=== PATIENT | female | born 1965 | race Caucasian/White ===

== ENCOUNTER → 2016-09-27 | Outpatient (CLI) | payer BC ==
--- NOTE | 2016-09-28 07:41 | MAMMOGRAPHY REPORT ---
BILATERAL DIGITAL SCREENING MAMMOGRAM TOMOSYNTHESIS WITH CAD: 09/27/2016 CLINICAL HISTORY: Routine screening. Patient has no complaints. TECHNIQUE: Breast tomosynthesis in addition to standard 2D mammography was performed. Current study was also evaluated with a Computer Aided Detection (CAD) system. COMPARISON: Comparison is made to exams dated: 09/23/2015 mammogram, 09/12/2014 mammogram, 09/10/2013 ma mmogram, 08/28/2012 mammogram, 08/27/2011 mammogram, and 08/25/2010 mammogram - [facility] nter. BREAST COMPOSITION: The tissue of both breasts is heterogeneously dense, which may obscure small mas ses. FINDINGS: There are a few scattered benign-appearing microcalcifications in the breasts. No suspicio us mass, architectural distortion or cluster of suspicious microcalcifications is seen. IMPRESSION: ACR BI-RADS CATEGORY 1: NEGATIVE There is no mammographic evidence of malignancy. A 1 year screening mammogram is recommended. The pa tient will receive written notification of the results. Approximately 10% of breast cancers are not detected with mammography. A negative mammographic report should not delay biopsy if a clinically suggestive mass is present. Ritu Hennessy M.D. ay/:09/27/2016 17:46:44 Baker Helper: Barbara DAVALOS)(Madie), [facility] letter sent: Normal 1/2 BI-RADS Code: ACR BI-RADS Category 1: Negative
== END | disposition home or self-care (01) ==
LOC: C.MAMM 11:04
PROVIDERS: ATTEND Physician Assistant
DX: Z12.31 Encounter for screening mammogram for malignant neoplasm of breast (principal)

== ENCOUNTER 2024-02-19 18:23 | Inpatient (IN) ==
--- NOTE | 2024-02-19 18:50 | CT Scan Report ---
EXAM: CT Head Without Intravenous Contrast INDICATION: Right facial droop and left hand numbness. TECHNIQUE: Axial computed tomography images of the head/brain without intravenous contrast. Sagittal and/or coronal reformats are provided. Sagittal and coronal reformatted images were created and reviewed. This CT exam was performed using one or more of the following dose reduction techniques: automated exposure control, adjustment of the mA and/or kV according to patient size, and/or use of iterative reconstruction technique. COMPARISON: No relevant prior studies available. FINDINGS: Limitations: None. Brain and extra-axial spaces: No abnormality noted. No hemorrhage. No significant white matter disease. No edema. No ventriculomegaly. Bones/joints: No acute changes. Soft tissues: No significant abnormality noted. Vasculature: No acute abnormality noted. Sinuses: No layering fluid in the visualized portions of the paranasal sinuses. Mastoid air cells: No mastoid effusion. Orbits: No significant abnormality noted. IMPRESSION: No abnormality noted. Results discussed per stroke protocol with Dr. Valencia at 6:50 PM 02/19/2024. ACT 112: Negative or not required by law. Electronically signed by Yu Santos 02-19-2024 6:50 PM
[2024-02-19] MEDS: ONDANSETRON INJ 2 MG/ML 2 ML VIAL IV STA (18:55)
[2024-02-19] MEDS: ONDANSETRON INJ 2 MG/ML 2 ML VIAL ONE (18:55)
[2024-02-19] MEDS: HYDROmorphone INJ 0.5 MG/0.5 ML SYR IV PRN (19:01)
[2024-02-19 19:03] LABS: iSTAT Creatinine 0.8 mg/dl (0.6-1.3); iSTAT Hemoglobin 13.9 g/dl (12.0-16.0); iSTAT Ionized Calcium 1.08 mmol/l (1.12-1.32); iSTAT Potassium 3.5 mmol/L (3.3-5.0)
[2024-02-19] MEDS: OPTIRAY 320 125ml IV ONE (19:08)
[2024-02-19 19:11] LABS: Hematocrit (blood only) 38.9 % (37.0-47.0); Hemoglobin 13.6 g/dl (12.0-16.0); Mean Corpuscular Hemoglobin 33.6 pg (25.0-34.0); Mean Platelet Volume 10.9 fL (9.4-12.4); Platelet Count 261 K/uL (130-400); RDW Coefficient of Variation 12.5 % (11.5-14.5); RDW Standard Deviation 44.3 fL (36.4-46.3); Red Blood Count 4.05 M/uL (4.20-5.40); White Blood Count 7.91 K/ul (4.8-10.8)
[2024-02-19 19:26] LABS: Albumin Level 4.9 gm/dl (3.4-5.0); BUN Creatinine Ratio 22.7 (10-20); Bilirubin,Total 0.6 mg/dl (0.2-1.0); Calcium 10.3 mg/dl (8.6-10.3); Creatinine Clr Calc Pharmacy 94.6 ml/min; Globulin 2.5 gm/dl (2.5-4.0); Magnesium 1.8 mg/dl (1.7-2.4); Potassium 3.5 mmol/L (3.5-5.1); Total Protein 7.4 gm/dl (6.0-8.3)
--- NOTE | 2024-02-19 19:29 | CT Scan Report ---
Exam(s): CTA HEAD With Contrast IV Amt: 116 ml optiray 320 EXAM: CT Angiography Head With Intravenous Contrast CLINICAL HISTORY: Reason for exam: L Hand, R face numbness, hx of vert dissection. TECHNIQUE: Axial computed tomographic angiography images of the head with intravenous contrast. CTDI is 12.37 mGy and DLP is 457.22 mGy-cm. Automated exposure control was utilized for the study. A dose lowering technique was utilized adhering to the principles of ALARA. MIP reconstructed images were created and reviewed. CONTRAST: Patient received 116 ml optiray 320 of IV contrast COMPARISON: No relevant prior studies available. FINDINGS: Right internal carotid artery: No acute findings. Intracranial segment is patent with no significant stenosis. No aneurysm. Right anterior cerebral artery: Unremarkable. No occlusion or significant stenosis. No aneurysm. Right middle cerebral artery: Unremarkable. No occlusion or significant stenosis. No aneurysm. Right posterior cerebral artery: Unremarkable. No occlusion or significant stenosis. No aneurysm. Right vertebral artery: Unremarkable as visualized. Left internal carotid artery: No acute findings. Intracranial segment is patent with no significant stenosis. No aneurysm. Left anterior cerebral artery: Unremarkable. No occlusion or significant stenosis. No aneurysm. Left middle cerebral artery: Unremarkable. No occlusion or significant stenosis. No aneurysm. Left posterior cerebral artery: Unremarkable. No occlusion or significant stenosis. No aneurysm. Left vertebral artery: Unremarkable as visualized. Basilar artery: Unremarkable. No occlusion or significant stenosis. No aneurysm. IMPRESSION: Unremarkable head CTA. Communications: Call Doctor Stroke Electronically signed by: Christian Bucio MD 02/19/24 19:28 PM
--- NOTE | 2024-02-19 19:33 | CT Scan Report ---
Exam(s): CTA NECK With Contrast IV Amt: 116 ml optiray 320 EXAM: CT Angiography Neck With Intravenous Contrast CLINICAL HISTORY: Reason for exam: L Hand, R face numbness, hx of vert dissection. TECHNIQUE: Routine carotid CT angiography protocol was performed with intravenous contrast. NASCET criteria using the distal ICAs for comparison were used for evaluation of stenoses. CTDI is 12.37 mGy and DLP is 457.22 mGy-cm. Automated exposure control was utilized for the study. A dose lowering technique was utilized adhering to the principles of ALARA. MIP reconstructed images were created and reviewed. CONTRAST: Patient received 116 ml optiray 320 of IV contrast COMPARISON: January 16, 2024 The aortic arch is mildly tortuous but nondilated. There is no aneurysm or dissection. FINDINGS: VASCULATURE: Right common carotid artery: Unremarkable. No occlusion or significant stenosis. No dissection. Right internal carotid artery: Unremarkable. Extracranial segment is patent with no occlusion or significant stenosis. No dissection. Right external carotid artery: Unremarkable. No occlusion. Right vertebral artery: The right vertebral artery is larger than the left. 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 No focal stenosis or thrombus is seen. Left common carotid artery: Unremarkable. No occlusion or significant stenosis. No dissection. Left internal carotid artery: Unremarkable. Extracranial segment is patent with no occlusion or significant stenosis. No dissection. Left external carotid artery: Unremarkable. No occlusion. Left vertebral artery: Unremarkable. No occlusion or significant stenosis. No dissection. NECK: Bones/joints: Mild degenerative disc disease in the lower cervical spine. No acute fracture or subluxation is seen. Soft tissues: Unremarkable. Lung apices: Clear. CAROTID STENOSIS REFERENCE USING NASCET CRITERIA: % ICA stenosis = (1 - narrowest ICA diameter/diameter of distal cervical ICA) x 100. Mild - <50% stenosis. Moderate - 50-69% stenosis. Severe - 70-94% stenosis. Near occlusion - 95-99% stenosis. Occluded - 100% stenosis. IMPRESSION: The right vertebral artery is larger than the left. 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 No focal stenosis or thrombus is seen. This was present previously. Otherwise normal appearance of the arterial structures of the neck. Communications: Call Doctor Stroke Electronically signed by: Christian Bucio MD 02/19/24 19:32 PM
[2024-02-19] MEDS: METOCLOPRAMIDE HCL INJ 5 MG/ML 2 ML VIAL IV STA (19:51)
[2024-02-19] MEDS: MAGNESIUM SULFATE / D5W 1 GM/100 ML BAG IV ONE (19:51)
[2024-02-19] MEDS: diphenhydrAMINE 50 MG/ML VIAL IV STA (19:51)
--- NOTE | 2024-02-19 19:51 | Emergency Department Note ---
Impression & Plan Stroke-like symptoms, Headache, Numbness and tingling of right side of face, Right leg weakness, Vertebral artery dissection ED Provider Note NAME: AARON VAZQUEZ AGE: 58 SEX: Female INFORMANT: Patient and ED PROVIDER(S): Zane Valencia MD CHIEF COMPLAINT: Strokelike symptoms PLAN: Disposition: Admitted Outpatient prescription management: none Referral: None MEDICAL DECISION MAKING: Patient presented because of strokelike symptoms. Stroke alert initiated. Head CT was done and negative. I-STAT was unremarkable. Patient was sent for CT angiography. Did consult with Dr. Joshua of stroke. No TNK recommended. With angiography and likely stroke admission for MRI and echo. Angiography was performed and revealed the stable dissection. I did discuss the case again with Dr. Joshua. He recommended the admission, Lipitor daily, 300 mg Plavix load and daily Plavix and aspirin. Patient patient has a history of migraine and given the symptoms discussed a trial of medication to see if this could help with her symptoms while the stroke workup but soon ongoing. Patient was given a dose of Reglan, Benadryl and magnesium. Consultation was made with the [facility] service, Dr. Gaona. Discussed patient's presentation, findings, and stroke consultation recommendations. Patient was evaluated in the ER and admitted for further management Care/management discussed with: schedule manager Level of care consideration(s): After review of the information above and other included data, I feel the patient requires escalation of care to admission Triage Nursing notes: reviewed and agree them. Vital Signs: reviewed and remarkable for hypertension Additional History obtained from: Patient's noted no slurred speech or confusion. Chronic Medical/Social Conditions affecting care: Migraines, vertebral artery dissection Prior/ Outside/ External records reviewed: Prior ED record reviewed. Imaging results from first week of January this year reviewed as well. Age- indeterminate right vertebral dissection. Differential Diagnosis: CVA, TIA, migraine headache, complication of dissection, infection, dehydration, metabolic abnormality, hypo/hyperglycemia, electrolyte disturbance, anemia, hypoxia, cardiac sources, intracerebral event, toxicologic, neurologic, as well as other pathologies. Diagnostics, independently interpreted by me: ECG: Twelve-lead ECG was normal sinus rhythm at [address] elevation or depression. Poor R wave progression. Cardiac Monitoring: Cardiac monitoring ordered by me: The patient was placed on continuous cardiac monitoring and observed. It revealed a normal sinus rhythm at 66 beats per minute without ectopy or evidence of dysrhythmia. Medical decision rules: none Imaging studies: Head CT: A noncontrast CT scan of the head was performed and was negative for tumor, fracture, intracranial hemorrhage, or other acute pathology. CT angiography of the head and neck revealed right vertebral dissection. I refer you to the EMR for further details. HPI: 58 year old Female arrives for evaluation of strokelike symptoms. Patient notes blurry vision and seeing spots for about a few days. Earlier today she developed a headache. She noted some shortness of breath. Few hours ago she had some increased blurred vision and some double vision. She then noted some numbness on the right side of her face and in the left hand. She notes right- sided headache and she has some nausea, and weakness in the right leg which started prior to arrival. Patient also notes some pain in her neck. She does note that she was here several weeks ago and was having a dental issue. A scan was done and she was found incidentally to have a vertebral dissection. Patient is to have an MRI later this month as an outpatient. Patient does have a history of migraines. Pt denies LOC, fevers, chills, diaphoresis, chest pain, vomiting, abdominal pain, back pain, melena, hematochezia, urinary symptoms, lymphadenopathy, rash, or other complaints. PAST MEDICAL HISTORY: See Below, migraine, vertebral dissection PAST SURGICAL HISTORY: See Below, SOCIAL HISTORY: See Below, HOME MEDICATIONS: See Below ALLERGIES: See Below VITALS: See Below PHYSICAL EXAMINATION: GENERAL: Awake, alert, anxious-appearing, in no distress HENT: Normocephalic, atraumatic. Oropharynx unremarkable. EYES: Normal conjunctiva. Sclera non-icteric. PERRLA. EOMI. NECK: Inspection normal. Non-tender. Supple. No nuchal rigidity. FROM. No masses. RESPIRATORY: Clear to auscultation. No wheezes. No rales. Normal respiratory effort. CARDIAC: Normal rate. Normal rhythm. No murmurs. No rubs. Extremities warm and well perfused. Pulses equal. No JVD. GI: Soft, non-distended. No tenderness to palpation. No rebound or guarding. No masses. RECTAL: Deferred. MUSCULOSKELETAL: Atraumatic. Chest examination reveals no tenderness. The back is symmetrical on inspection without obvious abnormality. There is no CVA tenderness to palpation. No joint edema. LOWER EXTREMITIES: Calves are equal size bilaterally and non-tender. No edema. No discoloration. NEURO: Normal sensorium. Subjective tingling in the right side of the face as well as the right arm. There is some mild drift in the right lower extremity with difficulty performing right heel to left nixon. Speech is normal. No expressive or receptive aphasia. SKIN: No rash or jaundice noted. 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 Beliefs That Will Affect Care: None Current Living Situation: Spouse Other Information That Helps Us Care for You: No Feels Safe at Home: Yes Safety Concerns: Feels Safe At This Time Assistive Devices: Glasses Allergies Allergies Allergy/AdvReac Type Severity Reaction Status Date / Time Penicillins Allergy Unknown Verified 02/06/24 13:09 Home Meds Home Medications Medication Instructions Recorded Confirmed aspirin 81 mg tablet,delayed 1 tab PO DAILY 02/19/24 02/19/24 release estradiol 0.0375 mg/24 hr 1 patch transdermal DIRECTED 02/19/24 02/19/24 semiweekly transdermal patch testosterone 50 mg/5 gram (1 %) 1 tube topical 1XD 02/19/24 02/19/24 transdermal gel Results & Data (ED) Vital Signs Vital Signs - 24 hr 02/19/24 18:31 02/19/24 18:38 02/19/24 18:38 Temperature 36.5 C Temperature Source Temporal Artery Scan Pulse Rate 77 Pulse Rate [Apical] Pulse Rhythm [Apical] Pulse Strength [Apical] Respiratory Rate 18 Respiratory Effort / Characteristics Non-Labored Spontaneous Respiratory Depth Normal Respiratory Pattern Blood Pressure 174/101 H Blood Pressure [Left Arm] Blood Pressure Mean 125 Blood Pressure Mean [Left Arm] Blood Pressure Position Sitting Blood Pressure Position [Left Arm] Pulse Oximetry 100 99 99 Oxygen Delivery Method Room Air Room Air Oxygen Flow Rate 0 Sepsis Recent Fever Within 48 Hours No Sepsis New/Unexplained Change in Mental Status No Sepsis Action Taken by Nursing No Action Required 02/19/24 18:47 02/19/24 19:15 02/19/24 20:00 Temperature Temperature Source Pulse Rate 71 Pulse Rate [Apical] 71 70 Pulse Rhythm [Apical] Regular Regular Pulse Strength [Apical] Normal Normal Respiratory Rate 22 20 Respiratory Effort / Characteristics Non-Labored Spontaneous Non-Labored Spontaneous Respiratory Depth Normal Normal Respiratory Pattern Regular Regular Blood Pressure Blood Pressure [Left Arm] 157/88 H 121/96 Blood Pressure Mean Blood Pressure Mean [Left Arm] 111 104 Blood Pressure Position Blood Pressure Position [Left Arm] Lying Lying Pulse Oximetry 99 95 Oxygen Delivery Method Nasal Cannula Room Air Oxygen Flow Rate 1 Sepsis Recent Fever Within 48 Hours Sepsis New/Unexplained Change in Mental Status Sepsis Action Taken by Nursing Laboratory Data 02/19/24 18:48 02/19/24 18:48 Lab Results 02/19/24 02/19/24 02/19/24 Range/Units 18:46 18:48 18:51 WBC 7.91 (4.8-10.8) K/ul RBC 4.05 L (4.20-5.40) M/uL Hgb 13.6 (12.0-16.0) g/dl POC Hgb 13.9 (12.0-16.0) g/dl Hct 38.9 (37.0-47.0) % POC Hct 41 (37-47) % MCV 96.0 (80.0-100.0) fL MCH 33.6 (25.0-34.0) pg MCHC 35.0 (32.0-36.0) g/dL RDW Std Deviation 44.3 (36.4-46.3) fL RDW Coeff of Kathie 12.5 (11.5-14.5) % Plt Count 261 (130-400) K/uL MPV 10.9 (9.4-12.4) fL PT 10.7 (9.0-12.0) Seconds INR 1.0 (0.9-1.1) APTT 25 (21-31) Seconds PTT Ratio 0.9 POC Sodium 138 (135-144) mmol/L Sodium 138 (136-145) mmol/L POC Potassium 3.5 (3.3-5.0) mmol/L Potassium 3.5 (3.5-5.1) mmol/L POC Chloride 103 (101-112) mmol/L Chloride 102 (98-107) mmol/L Carbon Dioxide 24 (21-32) mmol/L POC Total CO2 21 L (24-31) mmol/L Anion Gap 12 H (3-11) POC Anion Gap 18.0 (16-25) mmol/L POC BUN 14 (7-18) mg/dl BUN 15 (6-23) mg/dl Creatinine 0.66 (0.6-1.2) mg/dl POC Creatinine 0.8 (0.6-1.3) mg/dl Est Cr Clr Drug Dosing 94.6 ml/min eGFR 102.25 BUN/Creatinine Ratio 22.7 H (10-20) Glucose 112 H (70-99(Fasting)) mg/dl POC Glucose 109 H (70-99) mg/dl POC Glucose (other) 110 H (70-99) mg/dl Calcium 10.3 (8.6-10.3) mg/dl POC Ioniz Calcium Eugene 1.08 L (1.12-1.32) mmol/l Magnesium 1.8 (1.7-2.4) mg/dl Total Bilirubin 0.6 (0.2-1.0) mg/dl AST 29 (13-39) U/L ALT 23 (7-52) U/L Alkaline Phosphatase 86 (34-104) U/L Total Protein 7.4 (6.0-8.3) gm/dl Albumin 4.9 (3.4-5.0) gm/dl Globulin 2.5 (2.5-4.0) gm/dl Albumin/Globulin Ratio 2.0 (0.9-2) Administered Medications Discontinued Medications Clopidogrel Bisulfate (Clopidogrel Bisulfate 300 Mg Tab) 300 mg PO NOW STA Stop: 02/19/24 20:03 Last Admin: 02/19/24 20:08 Dose: 300 mg Documented By: SHAY Diphenhydramine HCl (Diphenhydramine 50 Mg/Ml Vial) 12.5 mg IV NOW STA Stop: 02/19/24 19:48 Last Admin: 02/19/24 19:51 Dose: 12.5 mg Documented By: COY Hydromorphone HCl (Hydromorphone Inj 0.5 Mg/0.5 Ml Syr) 0.25 mg IV Q15M PRN PRN Reason: Pain Stop: 03/04/24 18:53 Last Admin: 02/19/24 19:01 Dose: 0.25 mg Documented By: COY Magnesium Sulfate/Dextrose (Magnesium Sulfate / D5w) 1 gm in 100 mls @ 50 mls/hr IV ONE ONE Stop: 02/19/24 21:46 Last Infusion: 02/19/24 21:51 Dose: Infused Documented By: Admin: 02/19/24 19:51 Dose: 50 mls/hr Documented By: COY Ioversol (Optiray 320 125ml) 116 ml IV ONCE ONE Stop: 02/19/24 19:09 Last Admin: 02/19/24 19:08 Dose: 116 ml Documented By: NICHELLE Metoclopramide HCl (Metoclopramide Hcl Inj 5 Mg/Ml 2 Ml Vial) 10 mg IV NOW STA Stop: 02/19/24 19:48 Last Admin: 02/19/24 19:51 Dose: 10 mg Documented By: COY Ondansetron HCl (Ondansetron Inj 2 Mg/Ml 2 Ml Vial) Confirm Administered Dose 4 mg .ROUTE .STK-MED ONE Stop: 02/19/24 18:50 Last Admin: 02/19/24 18:55 Dose: Not Given Documented By: TERRA Ondansetron HCl (Ondansetron Inj 2 Mg/Ml 2 Ml Vial) 4 mg IV NOW STA Stop: 02/19/24 18:50 Last Admin: 02/19/24 18:55 Dose: 4 mg Documented By: TERRA Oxycodone HCl (Oxycodone Hcl Ir 5 Mg Tab (Immediate Release)) 5 mg PO NOW STA Stop: 02/19/24 21:34 Last Admin: 02/19/24 21:43 Dose: 5 mg Documented By: ETHAN Imaging Data Radiologist's Impression: Chest X-Ray 02/19/24 18:38 Exam(s): XR CXR 1 VIEW EXAM: XR Chest, 1 View CLINICAL HISTORY: Reason for exam: stroke alert. TECHNIQUE: Frontal view of the chest. COMPARISON: No relevant prior studies available. FINDINGS: Lungs: Unremarkable. No consolidation. Pleural space: Unremarkable. No pneumothorax. Heart: Unremarkable. No cardiomegaly. Mediastinum: Unremarkable. Normal mediastinal contour. Bones/joints: Unremarkable. No acute fracture. IMPRESSION: No acute cardiopulmonary process is identified. Electronically signed by: Christian Bucio MD 02/19/24 21:[address] 02/19/24 18:38 EXAM: CT Head Without Intravenous Contrast INDICATION: Right facial droop and left hand numbness. TECHNIQUE: Axial computed tomography images of the head/brain without intravenous contrast. Sagittal and/or coronal reformats are provided. Sagittal and coronal reformatted images were created and reviewed. This CT exam was performed using one or more of the following dose reduction techniques: automated exposure control, adjustment of the mA and/or kV according to patient size, and/or use of iterative reconstruction technique. COMPARISON: No relevant prior studies available. FINDINGS: Limitations: None. Brain and extra-axial spaces: No abnormality noted. No hemorrhage. No significant white matter disease. No edema. No ventriculomegaly. Bones/joints: No acute changes. Soft tissues: No significant abnormality noted. Vasculature: No acute abnormality noted. Sinuses: No layering fluid in the visualized portions of the paranasal sinuses. Mastoid air cells: No mastoid effusion. Orbits: No significant abnormality noted. IMPRESSION: No abnormality noted. Results discussed per stroke protocol with Dr. Valencia at 6:50 PM 02/19/2024. ACT 112: Negative or not required by law. Electronically signed by Yu Santos 02-19-2024 6:50 PM Head CTA 02/19/24 18:42 CR Exam(s): CTA HEAD With Contrast IV Amt: 116 ml optiray 320 EXAM: CT Angiography Head With Intravenous Contrast CLINICAL HISTORY: Reason for exam: L Hand, R face numbness, hx of vert dissection. TECHNIQUE: Axial computed tomographic angiography images of the head with intravenous contrast. CTDI is 12.37 mGy and DLP is 457.22 mGy-cm. Automated exposure control was utilized for the study. A dose lowering technique was utilized adhering to the principles of ALARA. MIP reconstructed images were created and reviewed. CONTRAST: Patient received 116 ml optiray 320 of IV contrast COMPARISON: No relevant prior studies available. FINDINGS: Right internal carotid artery: No acute findings. Intracranial segment is patent with no significant stenosis. No aneurysm. Right anterior cerebral artery: Unremarkable. No occlusion or significant stenosis. No aneurysm. Right middle cerebral artery: Unremarkable. No occlusion or significant stenosis. No aneurysm. Right posterior cerebral artery: Unremarkable. No occlusion or significant stenosis. No aneurysm. Right vertebral artery: Unremarkable as visualized. Left internal carotid artery: No acute findings. Intracranial segment is patent with no significant stenosis. No aneurysm. Left anterior cerebral artery: Unremarkable. No occlusion or significant stenosis. No aneurysm. Left middle cerebral artery: Unremarkable. No occlusion or significant stenosis. No aneurysm. Left posterior cerebral artery: Unremarkable. No occlusion or significant stenosis. No aneurysm. Left vertebral artery: Unremarkable as visualized. Basilar artery: Unremarkable. No occlusion or significant stenosis. No aneurysm. IMPRESSION: Unremarkable head CTA. Communications: Call Doctor Stroke Electronically signed by: Christian Bucio MD 02/19/24 19:28 PM Neck CTA 02/19/24 18:42 CR Exam(s): CTA NECK With Contrast IV Amt: 116 ml optiray 320 EXAM: CT Angiography Neck With Intravenous Contrast CLINICAL HISTORY: Reason for exam: L Hand, R face numbness, hx of vert dissection. TECHNIQUE: Routine carotid CT angiography protocol was performed with intravenous contrast. NASCET criteria using the distal ICAs for comparison were used for evaluation of stenoses. CTDI is 12.37 mGy and DLP is 457.22 mGy-cm. Automated exposure control was utilized for the study. A dose lowering technique was utilized adhering to the principles of ALARA. MIP reconstructed images were created and reviewed. CONTRAST: Patient received 116 ml optiray 320 of IV contrast COMPARISON: January 16, 2024 The aortic arch is mildly tortuous but nondilated. There is no aneurysm or dissection. FINDINGS: VASCULATURE: Right common carotid artery: Unremarkable. No occlusion or significant stenosis. No dissection. Right internal carotid artery: Unremarkable. Extracranial segment is patent with no occlusion or significant stenosis. No dissection. Right external carotid artery: Unremarkable. No occlusion. Right vertebral artery: The right vertebral artery is larger than the left. 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 No focal stenosis or thrombus is seen. Left common carotid artery: Unremarkable. No occlusion or significant stenosis. No dissection. Left internal carotid artery: Unremarkable. Extracranial segment is patent with no occlusion or significant stenosis. No dissection. Left external carotid artery: Unremarkable. No occlusion. Left vertebral artery: Unremarkable. No occlusion or significant stenosis. No dissection. NECK: Bones/joints: Mild degenerative disc disease in the lower cervical spine. No acute fracture or subluxation is seen. Soft tissues: Unremarkable. Lung apices: Clear. CAROTID STENOSIS REFERENCE USING NASCET CRITERIA: % ICA stenosis = (1 - narrowest ICA diameter/diameter of distal cervical ICA) x 100. Mild - <50% stenosis. Moderate - 50-69% stenosis. Severe - 70-94% stenosis. Near occlusion - 95-99% stenosis. Occluded - 100% stenosis. IMPRESSION: The right vertebral artery is larger than the left. 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 No focal stenosis or thrombus is seen. This was present previously. Otherwise normal appearance of the arterial structures of the neck. Communications: Call Doctor Stroke Electronically signed by: Christian Bucio MD 02/19/24 19:32 PM Discharge Plan Visit Data Chief Complaint: Stroke Alert Stated Complaint: NECK PAIN, SOB, ED Provider: Zane Valencia Discharge Problem: Stroke-like symptoms, Headache, Numbness and tingling of right side of face, Right leg weakness, Vertebral artery dissection Patient Disposition: Admitted As Inpatient Discharge Instructions Interventions: ED Discharge Assessment Last Done: 02/19/24 22:22
[2024-02-19] MEDS: CLOPIDOGREL BISULFATE 300 MG TAB PO STA (20:08)
[2024-02-19 20:18] LABS: Partial Thromboplastin Ratio 0.9; Partial Thromboplastin Time 25 Seconds (21-31); Prothrombin Time 10.7 Seconds (9.0-12.0)
--- NOTE | 2024-02-19 21:12 | XRay Report ---
Exam(s): XR CXR 1 VIEW EXAM: XR Chest, 1 View CLINICAL HISTORY: Reason for exam: stroke alert. TECHNIQUE: Frontal view of the chest. COMPARISON: No relevant prior studies available. FINDINGS: Lungs: Unremarkable. No consolidation. Pleural space: Unremarkable. No pneumothorax. Heart: Unremarkable. No cardiomegaly. Mediastinum: Unremarkable. Normal mediastinal contour. Bones/joints: Unremarkable. No acute fracture. IMPRESSION: No acute cardiopulmonary process is identified. Electronically signed by: Christian Bucio MD 02/19/24 21:11 PM
--- NOTE | 2024-02-19 21:37 | History & Physical Report ---
Date of Service February 19, 2024 Assessment & Plan (1) Stroke-like symptoms: Plan: 58-year-old female with past medical history significant for family history of breast cancer in mother comes with strokelike symptoms. 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 She followed with neurology and is on aspirin. There is a plan to do MRI and MRA brain. Today she went for trek and around 11 AM she started noticed severe right-sided headache. Also lot of nausea. Later around 5 PM she noticed numbness in the right side of the face. She felt numbness in her lips and also on tongue. Numbness in the both hands and right feet. She also had significant blurred vision in right eye at the time. She was not able to use her right leg properly at the time. She came to the ER and stroke alert was called. CT head is unremarkable. CTA neck showed same vertebral artery dissection. CTA head unremarkable. Currently patient's symptoms improved. Resting comfortably. Currently vision is okay. Earlier had some runny nose. No sore throat. Had some dry cough. Denies no earaches. Denies fevers. She was having chest pains on and off and attributes it to allergic reaction to penicillin. Currently no chest pain. Earlier today she was short of breath. Currently no shortness of breath. Currently nausea improved. No abdominal pain. Normal bowel and bladder movements. Hemodynamics are okay. Strokelike symptoms Currently symptoms improved CT head okay Unremarkable CTA head CTA neck shows nonflow limiting dissection involving the proximal right vertebral artery from the C6-C5 levels no focal stenosis thrombus seen Vertebral artery dissection was seen on the CT scan of soft tissue neck done on January 15 Stroke neurology recommended to load with Plavix and start daily dose and also Lipitor 40 mg daily to continue home aspirin and to follow MRI scan. MRI came back unremarkable We will follow neurochecks Will follow echo PT OT Neurology consult in a.m. for further recommendations Right vertebral artery dissection On aspirin Started on Plavix Neurology consult chest pains on and off ekg no acute findings troponin ok will follow echo if any concerns will consult cardio Headaches Pain control DVT prophylaxis SCDs for now Disposition Telemetry Full code. History of Present Illness Chief Complaint: Strokelike symptoms Primary Care Provider: Ramy Bergeron MD 58-year-old female with past medical history significant for family history of breast cancer in mother comes with strokelike symptoms. 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 She followed with neurology and is on aspirin. There is a plan to do MRI and MRA brain. Today she went for trek and around 11 AM she started noticed severe right-sided headache. Also lot of nausea. Later around 5 PM she noticed numbness in the right side of the face. She felt numbness in her lips and also on tongue. Numbness in the both hands and right feet. She also had significant blurred vision in right eye at the time. She was not able to use her right leg properly at the time. She came to the ER and stroke alert was called. CT head is unremarkable. CTA neck showed same vertebral artery dissection. CTA head unremarkable. Currently patient's symptoms improved. Resting comfortably. Currently vision is okay. Earlier had some runny nose. No sore throat. Had some dry cough. Denies no earaches. Denies fevers. She was having chest pains on and off and attributes it to allergic reaction to penicillin. Currently no chest pain. Earlier today she was short of breath. Currently no shortness of breath. Currently nausea improved. No abdominal pain. Normal bowel and bladder movements. Hemodynamics are okay. Past medical history.. As mentioned above. Past surgical history. Colonoscopy. Dental surgery. Laparoscopic hysterectomy. Umbilical hernia repair. Abdominoplasty. Social history. . No smoking. Alcohol 1 drink per denies per epic. Rare binge drinking per epic. No drug use. Family history. Mother had breast cancer at age of 63. Maternal grandfather had stomach cancer. Father had colon cancer age 65. Dementia. Maternal grandmother had diabetes. Paternal grandmother had heart disorder. Allergies Allergy/AdvReac Type Severity Reaction Status Date / Time Penicillins Allergy Unknown Verified 02/06/24 13:09 Home Medications Medication Instructions Recorded Confirmed Type aspirin 81 mg tablet,delayed 1 tab PO DAILY 02/19/24 02/19/24 History release estradiol 0.0375 mg/24 hr 1 patch transdermal DIRECTED 02/19/24 02/19/24 History semiweekly transdermal patch testosterone 50 mg/5 gram (1 %) 1 tube topical 1XD 02/19/24 02/19/24 History transdermal gel Past Med/Surg History Problem List (Updated 02/19/24 @ 19:51 by Zane Valencia MD) Vertebral artery dissection (Acute) Right leg weakness (Acute) Numbness and tingling of right side of face (Acute) Headache (Acute) Stroke-like symptoms (Acute) Social History Smoking Status: Never smoker Hx Alcohol Use: Yes Alcohol type: wine Hx Substance Use: No Preferred Language: Icelandic Communication Ability: Effective Sound Person Required: No Beliefs That Will Affect Care: None Current Living Situation: Spouse Other Information That Helps Us Care for You: No Feels Safe at Home: Yes Safety Concerns: Feels Safe At This Time Assistive Devices: Glasses Review of Systems Review of Systems: All systems reviewed & are unremarkable except as noted in HPI & below Physical Exam Physical Exam: General- Not in distress. Head- atraumatic Eyes- EOMI. Neck- supple, no JVD, no carotid bruit Lungs- clear to auscultation no wheezing or crackles. Heart- regular rate and rhythm; no murmur, no gallop. Abdomen- normal bowel sounds, soft, nontender, no distension Extremities- no pretibial edema, no erythema seen Neuro- alert, oriented EOMI; no facial palsy; no dysarthria; Power 5/5 bilaterally; no pronator drift, co ordination of movements normal, sensations intact, position sense intact Results & Data Results & Data Vital Signs (Past 12 Hours) Vital Signs Temp Pulse Pulse Resp BP BP Pulse Ox 02/19/24 20:00 70 20 121/96 95 02/19/24 19:15 71 22 157/88 H 99 02/19/24 18:47 71 02/19/24 18:38 99 02/19/24 18:38 99 02/19/24 18:31 36.5 C 77 18 174/101 H 100 O2 Del Method O2 Flow Rate 02/19/24 20:00 Room Air 02/19/24 19:15 Nasal Cannula 1 02/19/24 18:47 02/19/24 18:38 Room Air 0 02/19/24 18:38 02/19/24 18:31 Room Air Diagnostic Findings Laboratory Results WBC 7.91 K/ul (4.8-10.8) 02/19/24 18:48 RBC 4.05 M/uL (4.20-5.40) L 02/19/24 18:48 Hgb 13.6 g/dl (12.0-16.0) 02/19/24 18:48 POC Hgb 13.9 g/dl (12.0-16.0) 02/19/24 18:51 Hct 38.9 % (37.0-47.0) 02/19/24 18:48 POC Hct 41 % (37-47) 02/19/24 18:51 MCV 96.0 fL (80.0-100.0) 02/19/24 18:48 MCH 33.6 pg (25.0-34.0) 02/19/24 18:48 MCHC 35.0 g/dL (32.0-36.0) 02/19/24 18:48 RDW Std Deviation 44.3 fL (36.4-46.3) 02/19/24 18:48 RDW Coeff of Kathie 12.5 % (11.5-14.5) 02/19/24 18:48 Plt Count 261 K/uL (130-400) 02/19/24 18:48 MPV 10.9 fL (9.4-12.4) 02/19/24 18:48 PT 10.7 Seconds (9.0-12.0) 02/19/24 18:48 INR 1.0 (0.9-1.1) 02/19/24 18:48 APTT 25 Seconds (21-31) 02/19/24 18:48 PTT Ratio 0.9 02/19/24 18:48 POC Sodium 138 mmol/L (135-144) 02/19/24 18:51 Sodium 138 mmol/L (136-145) 02/19/24 18:48 POC Potassium 3.5 mmol/L (3.3-5.0) 02/19/24 18:51 Potassium 3.5 mmol/L (3.5-5.1) 02/19/24 18:48 POC Chloride 103 mmol/L (101-112) 02/19/24 18:51 Chloride 102 mmol/L (98-107) 02/19/24 18:48 Carbon Dioxide 24 mmol/L (21-32) 02/19/24 18:48 POC Total CO2 21 mmol/L (24-31) L 02/19/24 18:51 Anion Gap 12 (3-11) H 02/19/24 18:48 POC Anion Gap 18.0 mmol/L (16-25) 02/19/24 18:51 POC BUN 14 mg/dl (7-18) 02/19/24 18:51 BUN 15 mg/dl (6-23) 02/19/24 18:48 Creatinine 0.66 mg/dl (0.6-1.2) 02/19/24 18:48 POC Creatinine 0.8 mg/dl (0.6-1.3) 02/19/24 18:51 Est Cr Clr Drug Dosing 94.6 ml/min 02/19/24 18:48 eGFR 102.25 02/19/24 18:48 BUN/Creatinine Ratio 22.7 (10-20) H 02/19/24 18:48 Glucose 112 mg/dl (70-99(Fasting)) H 02/19/24 18:48 POC Glucose 109 mg/dl (70-99) H 02/19/24 18:46 POC Glucose (other) 110 mg/dl (70-99) H 02/19/24 18:51 Calcium 10.3 mg/dl (8.6-10.3) 02/19/24 18:48 POC Ioniz Calcium Eugene 1.08 mmol/l (1.12-1.32) L 02/19/24 18:51 Magnesium 1.8 mg/dl (1.7-2.4) 02/19/24 18:48 Total Bilirubin 0.6 mg/dl (0.2-1.0) 02/19/24 18:48 AST 29 U/L (13-39) 02/19/24 18:48 ALT 23 U/L (7-52) 02/19/24 18:48 Alkaline Phosphatase 86 U/L (34-104) 02/19/24 18:48 Total Protein 7.4 gm/dl (6.0-8.3) 02/19/24 18:48 Albumin 4.9 gm/dl (3.4-5.0) 02/19/24 18:48 Globulin 2.5 gm/dl (2.5-4.0) 02/19/24 18:48 Albumin/Globulin Ratio 2.0 (0.9-2) 02/19/24 18:48 Impressions Chest X-Ray 02/19/24 18:38 Exam(s): XR CXR 1 VIEW EXAM: XR Chest, 1 View CLINICAL HISTORY: Reason for exam: stroke alert. TECHNIQUE: Frontal view of the chest. COMPARISON: No relevant prior studies available. FINDINGS: Lungs: Unremarkable. No consolidation. Pleural space: Unremarkable. No pneumothorax. Heart: Unremarkable. No cardiomegaly. Mediastinum: Unremarkable. Normal mediastinal contour. Bones/joints: Unremarkable. No acute fracture. IMPRESSION: No acute cardiopulmonary process is identified. Electronically signed by: Christian Bucio MD 02/19/24 21:[address] 02/19/24 18:38 EXAM: CT Head Without Intravenous Contrast INDICATION: Right facial droop and left hand numbness. TECHNIQUE: Axial computed tomography images of the head/brain without intravenous contrast. Sagittal and/or coronal reformats are provided. Sagittal and coronal reformatted images were created and reviewed. This CT exam was performed using one or more of the following dose reduction techniques: automated exposure control, adjustment of the mA and/or kV according to patient size, and/or use of iterative reconstruction technique. COMPARISON: No relevant prior studies available. FINDINGS: Limitations: None. Brain and extra-axial spaces: No abnormality noted. No hemorrhage. No significant white matter disease. No edema. No ventriculomegaly. Bones/joints: No acute changes. Soft tissues: No significant abnormality noted. Vasculature: No acute abnormality noted. Sinuses: No layering fluid in the visualized portions of the paranasal sinuses. Mastoid air cells: No mastoid effusion. Orbits: No significant abnormality noted. IMPRESSION: No abnormality noted. Results discussed per stroke protocol with Dr. Valencia at 6:50 PM 02/19/2024. ACT 112: Negative or not required by law. Electronically signed by Yu Santos 02-19-2024 6:50 PM Head CTA 02/19/24 18:42 CR Exam(s): CTA HEAD With Contrast IV Amt: 116 ml optiray 320 EXAM: CT Angiography Head With Intravenous Contrast CLINICAL HISTORY: Reason for exam: L Hand, R face numbness, hx of vert dissection. TECHNIQUE: Axial computed tomographic angiography images of the head with intravenous contrast. CTDI is 12.37 mGy and DLP is 457.22 mGy-cm. Automated exposure control was utilized for the study. A dose lowering technique was utilized adhering to the principles of ALARA. MIP reconstructed images were created and reviewed. CONTRAST: Patient received 116 ml optiray 320 of IV contrast COMPARISON: No relevant prior studies available. FINDINGS: Right internal carotid artery: No acute findings. Intracranial segment is patent with no significant stenosis. No aneurysm. Right anterior cerebral artery: Unremarkable. No occlusion or significant stenosis. No aneurysm. Right middle cerebral artery: Unremarkable. No occlusion or significant stenosis. No aneurysm. Right posterior cerebral artery: Unremarkable. No occlusion or significant stenosis. No aneurysm. Right vertebral artery: Unremarkable as visualized. Left internal carotid artery: No acute findings. Intracranial segment is patent with no significant stenosis. No aneurysm. Left anterior cerebral artery: Unremarkable. No occlusion or significant stenosis. No aneurysm. Left middle cerebral artery: Unremarkable. No occlusion or significant stenosis. No aneurysm. Left posterior cerebral artery: Unremarkable. No occlusion or significant stenosis. No aneurysm. Left vertebral artery: Unremarkable as visualized. Basilar artery: Unremarkable. No occlusion or significant stenosis. No aneurysm. IMPRESSION: Unremarkable head CTA. Communications: Call Doctor Stroke Electronically signed by: Christian Bucio MD 02/19/24 19:28 PM Neck CTA 02/19/24 18:42 CR Exam(s): CTA NECK With Contrast IV Amt: 116 ml optiray 320 EXAM: CT Angiography Neck With Intravenous Contrast CLINICAL HISTORY: Reason for exam: L Hand, R face numbness, hx of vert dissection. TECHNIQUE: Routine carotid CT angiography protocol was performed with intravenous contrast. NASCET criteria using the distal ICAs for comparison were used for evaluation of stenoses. CTDI is 12.37 mGy and DLP is 457.22 mGy-cm. Automated exposure control was utilized for the study. A dose lowering technique was utilized adhering to the principles of ALARA. MIP reconstructed images were created and reviewed. CONTRAST: Patient received 116 ml optiray 320 of IV contrast COMPARISON: January 16, 2024 The aortic arch is mildly tortuous but nondilated. There is no aneurysm or dissection. FINDINGS: VASCULATURE: Right common carotid artery: Unremarkable. No occlusion or significant stenosis. No dissection. Right internal carotid artery: Unremarkable. Extracranial segment is patent with no occlusion or significant stenosis. No dissection. Right external carotid artery: Unremarkable. No occlusion. Right vertebral artery: The right vertebral artery is larger than the left. 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 No focal stenosis or thrombus is seen. Left common carotid artery: Unremarkable. No occlusion or significant stenosis. No dissection. Left internal carotid artery: Unremarkable. Extracranial segment is patent with no occlusion or significant stenosis. No dissection. Left external carotid artery: Unremarkable. No occlusion. Left vertebral artery: Unremarkable. No occlusion or significant stenosis. No dissection. NECK: Bones/joints: Mild degenerative disc disease in the lower cervical spine. No acute fracture or subluxation is seen. Soft tissues: Unremarkable. Lung apices: Clear. CAROTID STENOSIS REFERENCE USING NASCET CRITERIA: % ICA stenosis = (1 - narrowest ICA diameter/diameter of distal cervical ICA) x 100. Mild - <50% stenosis. Moderate - 50-69% stenosis. Severe - 70-94% stenosis. Near occlusion - 95-99% stenosis. Occluded - 100% stenosis. IMPRESSION: The right vertebral artery is larger than the left. 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 No focal stenosis or thrombus is seen. This was present previously. Otherwise normal appearance of the arterial structures of the neck. Communications: Call Doctor Stroke Electronically signed by: Christian Bucio MD 02/19/24 19:32 PM ECG Additional Comments: ECG. Normal sinus rhythm rate of 74. No acute ST changes seen. Code Status & VTE Plan VTE Prophylaxis Plan VTE Prophylaxis will be ordered: Yes
[2024-02-19] MEDS: oxyCODONE HCL IR 5 MG TAB (IMMEDIATE RELEASE) PO STA (21:43)
[2024-02-19] MEDS ORDERED: NITROGLYCERIN SL 0.4 MG/TAB TAB SL PRN (22:47)
[2024-02-19] MEDS ORDERED: PHARMACIST DISCHARGE MED REC CONSULT PRN (22:47)
[2024-02-19] MEDS ORDERED: ACETAMINOPHEN 325 MG TAB PO PRN (22:47)
[2024-02-19] MEDS ORDERED: ONDANSETRON INJ 2 MG/ML 2 ML VIAL IV PRN (22:47)
[2024-02-20] MEDS: GADOBUTROL 65ML VIAL IV ONE (00:17)
--- NOTE | 2024-02-20 01:37 | Magnetic Resonance Report ---
EXAM: MR brain wo/w con CLINICAL HISTORY: TECHNIQUE: Multisequential and multiplanar images of the brain were submitted for review with contrast. COMPARISON: None. FINDINGS: The brain shows normal morphology, signal intensity, and volume for age. No focal parenchymal lesions are seen. No pathological enhancement is noted on the postcontrast sequences. No intracranial hemorrhage, mass effect, midline shift, extra-axial collection, or hydrocephalus is identified. Ventricles, sulci, and basal cisterns are symmetric and normal in size and configuration. Diffusion-weighted sequences show no evidence of acute ischemic infarction. Midline structures including the pituitary gland, corpus callosum, pineal region, and brainstem are unremarkable. The craniovertebral junction is within normal limits. No calvarial abnormalities are identified. The paranasal sinuses and mastoid air cells are clear. Orbital structures are unremarkable. Appropriate flow voids are present in the visualized intracranial vessels. IMPRESSION: 1. No acute intracranial pathology, space occupying mass, or pathological enhancement is demonstrated. Electronically signed by Kraig Rizo 02-20-2024 01:36 AM
[2024-02-20 02:07] VITALS: RESP 16; TEMP 97.9
[2024-02-20] MEDS: MoRPHine SULFATE 4 MG/ML 1 ML CARP\\VIAL IV STA (06:54)
[2024-02-20 07:04] LABS: Basophils # (auto) 0.04 K/uL (0.00-0.20); Basophils % (auto) 0.8 %; Eosinophils # (auto) 0.15 K/uL (0.00-0.50); Eosinophils % (auto) 3.1 %; Hematocrit (blood only) 37.2 % (37.0-47.0); Hemoglobin 12.9 g/dl (12.0-16.0); Immature Granulocytes # (auto) 0.02 K/uL (0.01-0.20); Immature Granulocytes % (auto) 0.4 %; Lymphocytes # (auto) 1.26 K/uL (1.20-3.40); Lymphocytes % (auto) 25.8 %; Mean Corpuscular Hemoglobin 33.5 pg (25.0-34.0); Mean Corpuscular Hgb Conc 34.7 g/dL (32.0-36.0); Mean Corpuscular Volume 96.6 fL (80.0-100.0); Mean Platelet Volume 10.8 fL (9.4-12.4); Monocytes # (auto) 0.43 K/uL (0.11-0.59); Monocytes % (auto) 8.8 %; Neutrophils # (auto) 2.99 K/uL (1.40-6.50); Neutrophils % (auto) 61.1 %; Platelet Count 232 K/uL (130-400); RDW Coefficient of Variation 12.8 % (11.5-14.5); RDW Standard Deviation 45.2 fL (36.4-46.3); Red Blood Count 3.85 M/uL (4.20-5.40); White Blood Count 4.89 K/ul (4.8-10.8)
[2024-02-20 07:27] LABS: BUN Creatinine Ratio 17.6 (10-20); Calcium 9.2 mg/dl (8.6-10.3); Chol HDL Ratio 2.6 (0-5); Creatinine Clr Calc Pharmacy 92.6 ml/min; Potassium 4.2 mmol/L (3.5-5.1)
[2024-02-20 08:09] LABS: Estimated Average Glucose 91 mg/dl; Hemoglobin A1C 4.8 % (4.5-5.6)
[2024-02-20 08:36] VITALS: BP 137/83; PULSE 59; O2SAT 98
[2024-02-20] MEDS: CLOPIDOGREL BISULFATE 75 MG TAB PO SCH (08:40)
[2024-02-20] MEDS: ATORVASTATIN 40 MG TAB PO SCH (08:40)
[2024-02-20] MEDS: ASPIRIN 81 MG ECTAB PO SCH (08:40)
--- NOTE | 2024-02-20 09:20 | Hospitalist Progress Note ---
Date of Service February 20, 2024 Assessment & Plan (1) Stroke-like symptoms: Plan: 58-year-old female with past medical history significant for family history of breast cancer in mother comes with strokelike symptoms. 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 She followed with neurology and is on aspirin. There is a plan to do MRI and MRA brain. Today she went for trek and around 11 AM she started noticed severe right-sided headache. Also lot of nausea. Later around 5 PM she noticed numbness in the right side of the face. She felt numbness in her lips and also on tongue. Numbness in the both hands and right feet. She also had significant blurred vision in right eye at the time. She was not able to use her right leg properly at the time. She came to the ER and stroke alert was called. CT head is unremarkable. CTA neck showed same vertebral artery dissection. CTA head unremarkable. Currently patient's symptoms improved. Resting comfortably. Currently vision is okay. Earlier had some runny nose. No sore throat. Had some dry cough. Denies no earaches. Denies fevers. She was having chest pains on and off and attributes it to allergic reaction to penicillin. Currently no chest pain. Earlier today she was short of breath. Currently no shortness of breath. Currently nausea improved. No abdominal pain. Normal bowel and bladder movements. Hemodynamics are okay. Strokelike symptoms Currently symptoms improved CT head okay Unremarkable CTA head CTA neck shows nonflow limiting dissection involving the proximal right vertebral artery from the C6-C5 levels no focal stenosis thrombus seen Vertebral artery dissection was seen on the CT scan of soft tissue neck done on January 15 Stroke neurology recommended to load with Plavix and start daily dose and also Lipitor 40 mg daily to continue home aspirin and to follow MRI scan. MRI came back unremarkable We will follow neurochecks Will follow echo PT OT Neurology consult in a.m. for further recommendations Right vertebral artery dissection On aspirin Started on Plavix Neurology consult chest pains on and off ekg no acute findings troponin ok will follow echo if any concerns will consult cardio Headaches Pain control DVT prophylaxis SCDs for now Disposition Telemetry Full code. Admission and Anticipated Discharge Date Admission Date: February 19, 2024 Results & Data Results & Data Vital Signs (Past 12 Hours) Vital Signs Temp Pulse Pulse Resp BP Pulse Ox O2 Del Method 02/20/24 08:35 36.6 C 59 L 16 137/83 98 Room Air 02/20/24 02:06 36.6 C 65 16 116/71 96 Room Air 02/19/24 23:32 66 02/19/24 22:42 36.9 C 69 18 135/84 96 Room Air 02/19/24 22:22 63 18 149/86 H 96 Room Air 02/19/24 21:30 61 20 134/86 97
--- NOTE | 2024-02-20 09:34 | Neurology Consultation ---
Date of Consultation February 20, 2024 Assessment & Plan (1) Numbness and tingling of right side of face: History of Present Illness Attending Physician: Ganesh Luciano MD History of Present Illness 58 yo female with known rt vert dissection, incidental old finding. pt this morning feeling much better with essentially resolved symptoms of numbness and headach. mri brain negative. CTA head/neck stable. chart reviewed. admission HPI: 58-year-old female with past medical history significant for family history of breast cancer in mother comes with strokelike symptoms. 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 She followed with neurology and is on aspirin. There is a plan to do MRI and MRA brain. Today she went for trek and around 11 AM she started noticed severe right-sided headache. Also lot of nausea. Later around 5 PM she noticed numbness in the right side of the face. She felt numbness in her lips and also on tongue. Numbness in the both hands and right feet. She also had significant blurred vision in right eye at the time. She was not able to use her right leg properly at the time. She came to the ER and stroke alert was called. CT head is unremarkable. CTA neck showed same vertebral artery dissection. CTA head unremarkable. Currently patient's symptoms improved. Resting comfortably. Currently vision is okay. Earlier had some runny nose. No sore throat. Had some dry cough. Denies no earaches. Denies fevers. She was having chest pains on and off and attributes it to allergic reaction to penicillin. Currently no chest pain. Earlier today she was short of breath. Currently no shortness of breath. Currently nausea improved. No abdominal pain. Normal bowel and bladder movements. Hemodynamics are okay. Allergies Allergy/AdvReac Type Severity Reaction Status Date / Time Penicillins Allergy Unknown Verified 02/06/24 13:09 Home Medications Medication Instructions Recorded Confirmed Type aspirin 81 mg tablet,delayed 1 tab PO DAILY 02/19/24 02/19/24 History release estradiol 0.0375 mg/24 hr 1 patch transdermal DIRECTED 02/19/24 02/19/24 History semiweekly transdermal patch testosterone 50 mg/5 gram (1 %) 1 tube topical 1XD 02/19/24 02/19/24 History transdermal gel Patient History Social History Smoking Status: Never smoker Hx Alcohol Use: Yes Alcohol type: wine Hx Substance Use: No Preferred Language: Czech Communication Ability: Effective Director Mission Required: No Beliefs That Will Affect Care: None Current Living Situation: Spouse Other Information That Helps Us Care for You: No Feels Safe at Home: Yes Safety Concerns: Feels Safe At This Time Assistive Devices: Glasses Exam (Neuro) Physical Exam: HEENT: normocephalic grossly Neuro: Mental: AOx4, fluent speech, normal comprehension, no apraxia, no L/R confusion, no neglect CN: PERRL, Full EOM, symmetric face, midline T/U/P, grossly full ROM neck Motor: No abnormal movements, normal tone, 5/5 t/o bilaterally Sens: intact to touch b/l grossly Coord: intact FNT b/l DTR: 2+ sym b/l Gait: intact grossly Impression: 58 yo female with resolved rt side numbness and headache in setting of unknown age rt vert dissection. mri negative. CTA repeat unchanged. pt doing well. more likely pt had migraine syndrome event. Recommendations: DAPT for 90 days and then monotherapy after that I do not feel she need MRA in few weeks again as she had CTA yesterday and stable. prn use of maxalt 10mg ODT is reasonable as pt does not want to take prednisone of daily med for migraine. f/u with Dr. Chawla as planned as outpt. not much to add from neurology at this point. please call again if new question. Chart reviewed I have spent more than 50% educating patient about potential diagnosis and neurological evaluation and coordinating care with patient's treatment team. Total time spent (including chart review and coordination of care): 50 min (this includes chart review). Results & Data Vital Signs (Past 12 Hours) Vital Signs Temp Pulse Pulse Resp BP Pulse Ox O2 Del Method 02/20/24 08:35 36.6 C 59 L 16 137/83 98 Room Air 02/20/24 02:06 36.6 C 65 16 116/71 96 Room Air 02/19/24 23:32 66 02/19/24 22:42 36.9 C 69 18 135/84 96 Room Air 02/19/24 22:22 63 18 149/86 H 96 Room Air 02/19/24 21:30 61 20 134/86 97 PG Care Time/CCT Total # of Minutes Spent Total Time Spent with Patient: Total time spent is greater than 50% in coordination of care (as documented) at patient's floor/unit and/or counseling patient: Coding Level of Care Code 39427 IN/OBS CONSULT LVL 3,45M Diagnoses Numbness and tingling of right side of face R20.0; R20.2
--- NOTE | 2024-02-20 09:34 | Electrocardiogram Report ---
Test Reason : Blood Pressure : */* mmHG Vent. Rate : 74 BPM Atrial Rate : 74 BPM P-R Int : 154 ms QRS Dur : 72 ms QT Int : 394 ms P-R-T Axes : 4 29 48 degrees QTcB Int : 437 ms Normal sinus rhythm Poor R wave progression, consider anterior TN vs. lead placement vs. LVH Abnormal ECG No previous ECGs available Confirmed by Matthieu Thomas ([id number]) on 02/20/2024 9:34:25 AM Referred By: REFERRED SELF Confirmed By: Matthieu Thomas
--- NOTE | 2024-02-20 09:34 | Electrocardiogram Report ---
Test Reason : Blood Pressure : */* mmHG Vent. Rate : 65 BPM Atrial Rate : 65 BPM P-R Int : 154 ms QRS Dur : 86 ms QT Int : 440 ms P-R-T Axes : 11 4 37 degrees QTcB Int : 457 ms Poor data quality, interpretation may be adversely affected Normal sinus rhythm Poor R wave progression, consider anterior ID vs. lead placement vs. LVH Abnormal ECG When compared with ECG of 19-Feb-2024 18:45, No significant change was found Confirmed by Matthieu Thomas ([id number]) on 02/20/2024 9:34:15 AM Referred By: REFERRED SELF Confirmed By: Matthieu Thomas
[2024-02-20] MEDS ORDERED: STROKE PATIENT DISCHARGE STA (11:15)
--- NOTE | 2024-02-20 15:17 | Discharge Summary ---
Date of Service February 20, 2024 Admission HPI Per Admitting Provider 58-year-old female with past medical history significant for family history of breast cancer in mother comes with strokelike symptoms. 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 She followed with neurology and is on aspirin. There is a plan to do MRI and MRA brain. Today she went for trek and around 11 AM she started noticed severe right-sided headache. Also lot of nausea. Later around 5 PM she noticed numbness in the right side of the face. She felt numbness in her lips and also on tongue. Numbness in the both hands and right feet. She also had significant blurred vision in right eye at the time. She was not able to use her right leg properly at the time. She came to the ER and stroke alert was called. CT head is unremarkable. CTA neck showed same vertebral artery dissection. CTA head unremarkable. Currently patient's symptoms improved. Resting comfortably. Currently vision is okay. Earlier had some runny nose. No sore throat. Had some dry cough. Denies no earaches. Denies fevers. She was having chest pains on and off and attributes it to allergic reaction to penicillin. Currently no chest pain. Earlier today she was short of breath. Currently no shortness of breath. Currently nausea improved. No abdominal pain. Normal bowel and bladder movements. Hemodynamics are okay. Past medical history.. As mentioned above. Past surgical history. Colonoscopy. Dental surgery. Laparoscopic hysterectomy. Umbilical hernia repair. Abdominoplasty. Social history. . No smoking. Alcohol 1 drink per denies per the medical center. Rare binge drinking per the medical center. No drug use. Family history. Mother had breast cancer at age of 63. Maternal grandfather had stomach cancer. Father had colon cancer age 65. Dementia. Maternal grandmother had diabetes. Paternal grandmother had heart disorder. Admission Exam Per Admitting Provider General- Not in distress. Head- atraumatic Eyes- EOMI. Neck- supple, no JVD, no carotid bruit Lungs- clear to auscultation no wheezing or crackles. Heart- regular rate and rhythm; no murmur, no gallop. Abdomen- normal bowel sounds, soft, nontender, no distension Extremities- no pretibial edema, no erythema seen Neuro- alert, oriented EOMI; no facial palsy; no dysarthria; Power 5/5 bilaterally; no pronator drift, co ordination of movements normal, sensations intact, position sense intact Principal Diagnosis Migraine attack Stroke rule out Discharge Exam Constitutional: WD/WN, vitals as above, NAD, sitting up in bed, pleasant, conversing easily Respiratory: normal respiratory effort, lungs clear to auscultation, no wheeze, rales, rhonchi. Normal insp/exp effort, no accessory muscle use Cardiovascular: RRR, no murmur, no edema Vessels: no JVD or carotid bruit Chest: normal inspection of chest Abdomen: normal bowel sounds, soft, nontender, no hepatosplenomegaly Musculoskeletal: no cyanosis or clubbing, extremities motor strength 5/5 Skin: no rashes, warm and dry normal turgor Neurologic: PERRL, EOMI, accommodation nl, no face palsy, no dysarthria CN's II- XI intact bilaterally and moves all extremities Psychiatric: A+Ox3, euthymic affect Discharge Data Allergies Allergy/AdvReac Type Severity Reaction Status Date / Time Penicillins Allergy Unknown Verified 02/06/24 13:09 Consultations 02/19/24 20:34 ED Decision to Admit Stat 02/20/24 08:00 Consult Neurology Routine Ordered Studies 02/19/24 18:38 CT head/brain wo con Stat 02/19/24 18:42 CT angio head w con Stat CT angio neck with con Stat 02/19/24 22:47 MR brain wo/w con Urgent Hospital Course (1) Stroke-like symptoms: (2) Acute migraine: Plan 58-year-old female with past medical history significant for family history of breast cancer in mother comes with strokelike symptoms. 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 She followed with neurology and is on aspirin. Patient presented to the hospital with severe right-sided headache with numbness and tingling sensation in lips and tongue. Stroke alert was called. Patient underwent CT head, CTA head and neck which showed same vertebral artery dissection without any progression. MRI brain was done which did not show a stroke. Neurology was consulted for comanagement; patient's symptoms were thought secondary to migraine attack. Recommended aspirin and Plavix for 90 days. Patient was also started on rosuvastatin. Neurology also recommended Maxalt 10 mg as needed for migraine headache. Discussed with neurology; no concerns with using Maxalt with patient's history of vertebral artery dissection. Patient to follow-up with neurology as scheduled. Please note the above document was generated using voice recognition software. It may contain grammatical, syntax or spelling errors. Any formal questions or concerns about the content, text or information contained within the body of this dictation should be directly addressed to the provider for clarification Total Time Total Time Spent Total Time Spent (In Minutes): 34 Total Time Includes: Examination of the Patient, Discharge Planning, Medication Reconciliation, Communication With Other Providers and Other Discharge Plan Discharge Items Patient Disposition: Home - Self-Care Reason For Visit: STROKE LIKE SYMPTOMS Discharge Diagnosis: Vertebral artery dissection Stroke rule out Activity: Resume your previous activity Non-emergency contact: Primary Care Provider Call non-emergency contact if: you have any medication questions and your symptoms worsen Follow-up/Referrals: Ramy Bergeron MD [Primary Care Provider] - Diet: Regular Addtl Attending Provider Instructions: You were admitted to the hospital for concern of stroke. You were evaluated by Neurology during the hospitalization. They recommend that you take Aspirin and Plavix for 90 days, then aspirin alone after that. Neurology recommended Maxalt 10mg for headache. Please follow the instruction regarding the medication. Follow up with Neurology as scheduled. Pending Studies at Discharge: No Stand-Alone Forms: My [facility], Smoking Cessation Medications and DC Order Prescriptions: New clopidogrel 75 mg Tablet 75 mg PO QAM 90 Days Qty: 90 0RF rizatriptan [Maxalt] 10 mg tablet See Rx Instructions .ROUTE .COMPLEX Qty: 10 0RF Rx Instructions: take 1 tab at onset of headache; if no relief may repeat 1 tab after at least 2 hrs; max = 3 tabs/24 hr rosuvastatin 10 mg tablet 10 mg PO DAILY Qty: 30 0RF Continued aspirin 81 mg Tablet,Delayed Release (Dr/Ec) 1 tab PO DAILY estradiol 0.0375 mg/24 hr patch semiweekly 1 patch transdermal DIRECTED Rx Instructions: lower abdomen or buttocks, remove and replace with new patch twice a week testosterone 50 mg/5 gram (1 %) gel 1 tube topical 1XD Discharge Orders: Discharge Order (Routine); Ordered 02/20/24 Ordered By: Ganesh Luciano Admission Data Admit Date/Time: 02/19/24 21:10 Attending Provider: Ganesh Luciano Admit Provider: Ryley Gaona Primary Care Provider: Ramy Bergeron Other Providers: Ryley Gaona; Zane Gallo Other Interventions: Discharge Summary Assessment (RN) Last Done: 02/20/24 11:19
== END 2024-02-20 12:53 | disposition home or self-care (01) | DRG 100 ==
LOC: ED 18:23 → 2S 21:10